=== PATIENT | male | born 1995 | race Two or more races ===

== ENCOUNTER 2023-02-07 18:20 | Emergency (ER) | payer OTHER ==
[2023-02-07] MEDS: Ondansetron 4 MG Tab.DIS PO ONE (18:29)
[2023-02-07] MEDS: HYDROmorphone 1 MG/ML Syringe IM ONE (18:29)
[2023-02-07] MEDS ORDERED: Acetaminophen/HYDROcodone 325-5 MG Tab PO PRN (19:41)
== END 2023-02-07 20:25 | disposition home or self-care (01) ==
LOC: KA.ED 18:20
DX: S40.012A Contusion of left shoulder, initial encounter (principal); S40.812A Abrasion of left upper arm, initial encounter; W22.8XXA Striking against or struck by other objects, initial encounter; Y92.89 Other specified places as the place of occurrence of the external cause; Y99.0 Civilian activity done for income or pay
CPT/HCPCS: 71101; 73030; 96372; 99283; 99284; A9270; J1170